=== PATIENT | female | born 1940 | race Caucasian/White ===

== ENCOUNTER → 2023-06-04 12:00 | Outpatient (REF) | payer MEDICARE, SELFPAY ==
[2023-06-04 17:35] LABS: Urine Albumin Negative (Neg - Trace); Urine Bilirubin Negative (Negative); Urine Character Clear (Clear); Urine Color Yellow; Urine Glucose Negative (Negative); Urine Ketone Negative (Negative); Urine Leukocyte 1+ (Negative); Urine Nitrite Negative (Negative); Urine Occult Blood Negative (Negative); Urine Specific Gravity 1.025 (<1.030); Urine Urobilinogen Negative (Neg - 1+)
[2023-06-04 17:48] LABS: Urine Red Blood Cell None Seen /HPF (0-2)
== END ==
LOC: OLABBH 12:00
PROVIDERS: ATTENDING PHYSICIAN Family Medicine
DX: N39.0 Urinary tract infection, site not specified (principal)
CPT/HCPCS: 81003; 81015; 87086

== ENCOUNTER 2023-11-15 20:43 | Emergency (ER) | payer MEDICARE, SELFPAY ==
[2023-11-15 20:45] VITALS: BP 145/70; BMI 27.5
--- NOTE | 2023-11-15 22:19 | ED.MUSCINJ ---
HPI-Injury
General
Chief Complaint: Fall
Source: custodial
Exam Limitations: dementia
Time Seen by Provider: 11/15/23 20:57
History of Present Illness-Injury
Is pt an associate of [facility]/[place]?: No
Initial Injury comments:
This is a 82 year old female that comes in with c/o fall. Called and spoke with Taina. States that the patient has a 1 on 1 youth care specialist. The youth care specialist told the staff that she had taken the patient into the BR to get her changes and she lost her
balance. States that she fell. State that the patient c/o wrist/hand pain. Denies any fever, chills, chest pain, SOB, nausea, vomiting, diarrhea, headache, dizziness.
Past History
Past History
ED Past Medical History: HTN, Psychiatric (Anxiety) and Other (Dementia, )
ED Past Surgical History: None
Social History
Tobacco: Non-smoker
Alcohol: None
Drug: None
Living: custodial
Review of Systems
Review of Systems
Unable to obtain full review of systems at this time due to: dementia
Other source history: custodial
All Other Systems: ROS reviewed and negative except as documented in HPI and ROS
Constitutional: Denies fever or chills
EENT: Reports no symptoms
Respiratory: Reports no symptoms
Cardiac: Reports no symptoms
ABD/GI: Reports no symptoms; Denies abdominal pain, nausea, vomiting or diarrhea
: Reports no symptoms
Musculoskeletal: Reports joint pain (Left wrist pain)
Skin: Reports no symptoms
Neurological: Reports no symptoms; Denies dizzy or headache
Psychiatric: Reports no symptoms
Musculoskeletal Injury Exam
Musculoskeletal Injury Exam
Left Wrist:
Pain with Movement?: Mild
Tender to palpation?: Mild
Soft tissue swelling?: Mild
External deformity and angulation?: Mild
Joint effusion?: None
Hematoma-local bleeding into tissue?: None
Strain- Sprain- Tear (Connective tissue injury)?: None
Crepitus with movement?: No
Joint instability?: Yes
Malalignment/deformity?: Yes (Slight)
Range of motion: Limited (Due to pain)
Distal skin color and temperature: normal-warm & good color
Capillary Refill: normal
Normal distal neurovascular exam?: Yes
Phy Exam
General Physical Exam
General Presentation: no apparent distress
General age: appears stated age
General Skin: warm and dry
General Habitus: elderly
General Mental: usual mental status
General Hydration: appears well hydrated
ENT Exam
ENT Exam: TM's normal, pharynx normal and neck supple
Eye Exam
Eye Exam: EOMI
Cardiovascular Exam
Cardiovascular Exam: regular rate/rhythm, no edema and normal peripheral pulses
Pulmonary Exam
Pulmonary Exam: lungs clear, no respiratory distress, no rales, chest non tender, no crackles, no rhonchi, no wheezing and no cough
Gastrointestinal Exam
Gastrointestinal Exam: normal bowel sounds, non tender, soft, no organomegaly, no pulsatile mass and non distended
Musculoskeletal Exam
Musculoskeletal Exam: no edema and other (Left wrist tenderness over the distal radius with swelling and contusion, Negative for cervical neck tenderness. Moving all extremties. )
Skin Exam
Skin Exam: normal color, warm/dry, no rash and no petechia
Psychiatric Exam
Psychiatric Exam: normal mood/affect
Injury Course
Orders/Labs/Results
Orders:
Orders
11/15/23 21:52
Wrist, Left 3 Views CR [CR Wrist - Left Min 3 Views] Urgent
Comment:
Reason For Exam: Fall
11/15/23 22:18
CT Head W/o Iv Contrast Urgent
Comment:
Reason For Exam: Fall
11/16/23 00:26
Splints/Slings/Crut- Treatment ONCE
Sling to: Left Arm
Location: Left
Type of Splint: Volar
MDM/Problems Addressed
Differential Diagnosis Includes:
Left wrist fracture
MDM/Problems Addressed:
This is a 83 year old female that comes in by ambulance from the custodial. Called and spoke with Taina and she states that the patient has a personal youth care specialist. States that she was taken into the bathroom to clean her up and patient lost her
balance. States that they were unsure if she hit her head.
will get CT dna X-ray of the left wrist.
CT of head was normal. There is a distal radial head fracture. Will place in splint and sling and have patient follow up with the medical staff specialist. Patient to use Tylenol for pain. Return with any concerns.
Chronic conditions affecting care:
Dementia
Acute Exacerbation and/or Progression of Chronic Illness:
NA
*Radiology
Radiology exam reviewed: preliminary read by ED provider (Left distal radial head fracture. ) and radiology read reviewed (CT head- No acute intracranial process. No intracranial bleed. No calvarial fracture. Unchanged moderate parenchymal volume
loss)
*Pulse Oximetry
Patient hypoxic: no
*EKG
Interpreted by ED Provider?: NA
Rate: EKG- N/A
*Window Framer Interpretation
Rate: Window Framer- N/A
*Critical Care Note
Total Time (30-74mins, 75-104mins- exclusive of procedures): Not Applicable
ED Attending Note
-
Portions of this chart may have been created with voice recognition software.� Occasional wrong word or��sound alike� substitutions may have occurred due to the inherent limitations of voice recognition software.
Discharge Plan
Departure
Patient Disposition: Detention/SNF
Date of Disposition: 11/16/23
Time of Disposition: 00:52
Patient with high blood pressure during this ER visit?: Yes
Condition: Good
Covid-19: Not Applicable
Discharge Problem:
Fracture of left wrist
Instructions: Preventing falls in adults, How to Use a Shoulder Sling ED, BLOOD PRESSURE, RICE Therapy, Wrist Fracture
Prescriptions:
No Action
polyethylene glycol 3350 17 gram Powder In Packet
17 g PO DAILYPRN PRN (Reason: if no bm in 2 days)
sertraline 50 mg Tablet
50 mg PO DAILY
quetiapine 300 mg tablet
300 mg PO HS
lisinopril 20 mg tablet
20 mg PO DAILY
aspirin 81 mg Tablet,Delayed Release (Dr/Ec)
81 mg PO DAILY
oxcarbazepine 150 mg tablet
150 mg PO DAILY
oxcarbazepine 150 mg tablet
225 mg PO HS
loperamide 2 mg Capsule
2 mg PO Q4HPRN PRN (Reason: loose stool)
gabapentin 400 mg capsule
400 mg PO BID
quetiapine 100 mg tablet
100 mg PO DAILY
triamcinolone acetonide 0.1 % ointment
1 applic TOPICAL BID@0700,2000
nitrofurantoin monohyd/m-cryst 100 mg capsule
100 mg PO DAILY
quetiapine 50 mg tablet
50 mg PO BIDPRN PRN (Reason: anxiety)
Referrals:
Davis Ayoub MD [Active] - Follow up in 2-3 days
Eliazar Parks MD [Family Provider] -
Activity Restrictions/Additional Instructions:
As discussed, patient has a fracture of the left radius. A splint has been applied. Please keep this on until she see's the provider relations specialist. Please keep in the sling when up moving around and remove the sling to sleep and rest on a pillow. Ice
to the wrist as much as possible. Tylenol as needed for pain. CT of the head was normal. Follow up with the family doctor as needed. IF YOU HAVE ANY OTHER CONCERNS PLEASE RETURN TO THE EMERGENCY ROOM.
Interventions
Interventions:
*Risk Screen - Suicide Last Done: 11/15/23 20:45
*General Assessment Last Done: 11/15/23 20:45
*Neglect/Abuse Screening Last Done: 11/15/23 20:45
ED-Musculoskeletal Assessment Last Done: 11/15/23 20:53
ED- Neurological Assessment Last Done: 11/15/23 20:53
ED-Skin Assessment Last Done: 11/15/23 20:53
Discharge Date and Time
Print Language: PALAUAN
[2023-11-16 01:44] VITALS: BP 152/68
[2023-11-16 04:14] VITALS: BP 150/66
== END 2023-11-16 04:17 ==
LOC: EMR 20:43
PROVIDERS: EMERGENCY PHYSICIAN Emergency Medicine; FAMILY PHYSICIAN Family Medicine
DX: S52.572A Other intraarticular fracture of lower end of left radius, initial encounter for closed fracture (principal); W19.XXXA Unspecified fall, initial encounter; F03.94 Unspecified dementia, unspecified severity, with anxiety; I10 Essential (primary) hypertension
CPT/HCPCS: 99284; 29125; 70450; 73110

== ENCOUNTER 2024-05-21 03:07 | Emergency (ER) | payer MEDICARE, SELFPAY ==
[2024-05-21] VITALS (11 sets, daily range): BP systolic 101–165; BP diastolic 47–86; BMI 20.5
--- NOTE | 2024-05-21 04:12 | ED.GENMED ---
History of Present Illness
General
Chief Complaint: Fall
Source: ambulance crew and custodial
Exam Limitations: altered mental status and dementia
Time Seen by Provider: 05/21/24 04:06
Nursing documentation reviewed up to this point in time: agreed with
History of Present Illness
History of Present Illness:
This is an 83-year-old woman with history of dementia with behavioral disturbances, resident of a memory care custodial. She suffered an unwitnessed fall, being found by custodial staff sitting on the floor in the bathroom with a bedpan on
her head covered in feces.
According to the custodial staff patient seems more confused than her baseline confusion.
No report of blood thinners save for low-dose aspirin.
History and exam markedly limited due to dementia.
Upon arrival to the ED patient found to be hypothermic with rectal temperature of 94.2 �F.
Past History
Past History
ED Past Medical History: HTN, Psychiatric (Anxiety) and Other (Dementia, )
ED Past Surgical History: None
Social History
Tobacco: Non-smoker
Alcohol: None
Drug: None
Living: custodial
Family History
Family History: Unable to obtain
Phy Exam
Physical Exam
Physical Exam:
GENERAL: 83-year-old woman appears her stated age, appears somewhat chronically debilitated. Drowsy, opens her eyes to verbal/tactile stimuli and looks to the examiner but is nonverbal and is not following commands.
EYE: The head is normocephalic, atraumatic. Pupils equal and reactive. anicteric
NECK: Supple, no appreciable tenderness, markedly limited range of motion, no meningismus, no significant adenopathy.
ENT: posterior pharynx is clear, oral mucosa is moist. TM clear b/l, nares patent.
CARDIAC: Regular rate and rhythm. no murmur. No palpable chest wall tenderness.
LUNGS: Clear breath sounds bilaterally, no acute respiratory distress, no wheezes/rales/rhonchi
ABDOMEN: Soft, nondistended, without focal tenderness, no r/g, normoactive BS.
BACK: No appreciable midline bony tenderness. No evidence of contusions nor abrasions.
NEUROLOGICAL: Sleeps when undisturbed, awakens to verbal/tactile stimuli. Looks to the examiner but is nonverbal, does not follow commands. Moving all 4 extremities. No focal neuro deficits.
SKIN: Mildly cool and dry, normal color, skin intact. No rash. No contusions nor abrasions.
MUSCULOSKELETAL: No C/C/E. peripheral pulses are full and equal b/l. No palpable tenderness.
PSYCH: Nonverbal.
Course
Orders/Labs/Results
Orders:
Orders
05/21/24 03:18
Electrocardiogram (*1) Urgent
Reason for Study: Other
Other Reason for Exam: Possible Sepsis
Cardiac Monitoring- Treatment ONCE
IV Insert/Care/Rem.- Treatment PRN
Straight cath- Treatment ONCE
05/21/24 03:19
EKG- Treatment ONCE
05/21/24 03:20
CT Cervical Spine W/o Iv Contr Urgent
Comment:
Reason For Exam: altered mental status
CT Head W/o Iv Contrast Urgent
Comment: wrong order placed by rn
Reason For Exam: altered mental status
05/21/24 03:59
Complete Blood Count/With Diff Urgent
Comprehensive Metabolic Panel Urgent
Lactic Acid Q4H
Comment: ON ICE, CANCEL 2ND ORDER IF FIRST LACTIC ACID LEVEL <2
Blood Culture Q20M
[place] Source: Blood/Venous
Specimen Description:
Comment: Urgent from separate sites. If patient screens positive for possible sepsis
05/21/24 04:34
Urinalysis Reflex To Culture Urgent
Date Specimen was Collected: 05/21/24
Time Specimen was Collected: 03:19
Urine Microscopic Reflex Cult Urgent
Blood Culture Q20M
[place] Source: Blood/Venous
Specimen Description:
Comment: Urgent from separate sites. If patient screens positive for possible sepsis
Urine Culture Urgent
[place] Source: U
Specimen Description:
Date Specimen was Collected: 05/21/24
Time Specimen was Collected: 03:19
Abnormal Lab Results
05/21/24 05/21/24
03:59 04:34
RBC 4.16 L 10^6/uL
(4.20-5.40)
MPV 11.7 H fL
(7.4-10.4)
Absolute Neuts (auto) 7.4 H 10^3/uL
(1.4-6.5)
Absolute Lymphs (auto) 0.5 L 10^3/uL
(1.2-3.4)
Neutrophils % 86.0 H %
(42.2-75.2)
Lymphocytes % 6.2 L %
(20.5-51.1)
BUN 41 H mg/dl
(7-17)
Glucose 184 H mg/dl
(70-99)
Urine Ketones 1+ A
(Negative)
Leukocyte Esterase Rfl 1+ A
(Negative)
Urine Bacteria (Reflex) Moderate A
(Negative)
Urine Albumin (Reflex) 2+ A
(Neg - Trace)
05/21/24 03:59
05/21/24 03:59
Vital Signs
Initial and Last Documented VS:
Initial Vital Signs
Temp Pulse Resp BP Pulse Ox
94.2 F L 81 12 110/47 94
05/21/24 03:10 05/21/24 03:10 05/21/24 03:10 05/21/24 03:10 05/21/24 03:10
Last Documented Vital Signs
Temp Pulse Resp BP Pulse Ox
97.3 F 71 14 138/76 96
05/21/24 06:08 05/21/24 07:06 05/21/24 07:06 05/21/24 07:06 05/21/24 07:06
MDM/Problems Addressed
Differential Diagnosis Includes:
Concern for occult head injury, cervical spine injury, will check CT.
Found to be hypothermic, concern for occult sepsis.
Will check labs, urinalysis.
Will place on business records manager, concern for potential arrhythmia as cause for fall.
Chronic conditions affecting care: HTN and Psychiatric illness (Dementia)
*Radiology
Radiology exam reviewed: radiology read reviewed (CT of the head and C-spine show no acute traumatic findings. Note of multinodular enlarged thyroid gland.)
*EKG
Interpreted by ED Provider?: Yes
Comparison EKG: changes noted (Unchanged from previous 2022 save for QT has lengthened)
Rate: normal
Rhythm: sinus
[place]: left axis deviation
Interval: long QT
QRS Pattern: normal QRS
Ischemia: no ischemia
*Line Manager Interpretation
Rate: normal
Interpretation: normal
Rhythm: sinus
*Critical Care Note
Total Time (30-74mins, 75-104mins- exclusive of procedures): Not Applicable
Update Note
Update Note:
06:55
Temperature has normalized with brief course of Cornelius hugger.
CT of the head is unremarkable. C-spine CAT scan is unremarkable.
Labs are unremarkable.
Urinalysis shows moderate bacteria but only 0-2 WBCs not consistent with UTI.
Patient appears to be at her baseline mental state.
No evidence of acute traumatic findings, no evidence of acute infectious process.
Will discharge back to custodial for continued care.
ED Attending Note
-
Portions of this chart may have been created with voice recognition software.� Occasional wrong word or��sound alike� substitutions may have occurred due to the inherent limitations of voice recognition software.
Discharge Plan
Departure
Patient Disposition: Half-Way/SNF
Date of Disposition: 05/21/24
Time of Disposition: 06:58
Patient with high blood pressure during this ER visit?: No
Condition: Good
Discharge Problem:
unwitnessed fall at custodial
Instructions: Preventing falls in adults
Prescriptions:
No Action
polyethylene glycol 3350 17 gram Powder In Packet
17 g PO DAILYPRN PRN (Reason: if no bm in 2 days)
sertraline 50 mg Tablet
50 mg PO DAILY
quetiapine 300 mg tablet
300 mg PO HS
lisinopril 20 mg tablet
20 mg PO DAILY
aspirin 81 mg Tablet,Delayed Release (Dr/Ec)
81 mg PO DAILY
oxcarbazepine 150 mg tablet
150 mg PO DAILY
oxcarbazepine 150 mg tablet
225 mg PO HS
loperamide 2 mg Capsule
2 mg PO Q4HPRN PRN (Reason: loose stool)
gabapentin 400 mg capsule
400 mg PO BID
quetiapine 100 mg tablet
100 mg PO DAILY
triamcinolone acetonide 0.1 % ointment
1 applic TOPICAL BID@0700,1999
nitrofurantoin monohyd/m-cryst 100 mg capsule
100 mg PO DAILY
quetiapine 50 mg tablet
50 mg PO BIDPRN PRN (Reason: anxiety)
Referrals:
UNKNOWN - PT DOES,NOT KNOW [Family Provider] -
Interventions
Interventions:
*Risk Screen - Suicide Last Done: 05/21/24 03:10
*General Assessment Last Done: 05/21/24 03:10
*Neglect/Abuse Screening Last Done: 05/21/24 03:10
*ED- Fall Risk Assessment Last Done: 05/21/24 07:06
*ED COVID-19 Vaccine History Last Done: 05/21/24 03:10
ED-Musculoskeletal Assessment Last Done: 05/21/24 04:15
ED- Neurological Assessment Last Done: 05/21/24 04:15
ED-Skin Assessment Last Done: 05/21/24 04:15
ED Swallowing Screen Last Done: 05/21/24 04:15
Discharge Date and Time
Print Language: YI
[2024-05-21 04:16] LABS: % Basophils 0.4 % (0-2); % Eosinophils 0.7 % (0-6); % Immature Granulocytes 0.5 % (0-0.5); % Lymphocytes 6.2 % (20.5-51.1); % Monocytes 6.2 % (1.7-9.3); Absolute Eosinophils 0.1 10^3/uL (0-0.7); Absolute Lymphocytes 0.5 10^3/uL (1.2-3.4); Absolute Monocytes 0.5 10^3/uL (0.1-0.6); Absolute Neutrophils 7.4 10^3/uL (1.4-6.5); Hematocrit 39.1 % (37.0-47.0); Hemoglobin 12.9 g/dL (12.0-16.0); Mean Platelet Volume 11.7 fL (7.4-10.4); Nucleated Red Blood Cells % 0 %; Platelet Count 161 10^3/uL (130-400); Red Blood Cell Count 4.16 10^6/uL (4.20-5.40); Red Cell Dist. Width 13.2 % (11.5-14.5); White Blood Cell Count 8.6 10^3/uL (4.8-10.8)
[2024-05-21 04:33] LABS: ALT (SGPT) 21 U/L (0-35); AST (SGOT) 23 U/L (14-36); Albumin 4.2 g/dl (3.5-5.0); Alkaline Phosphatase 86 U/L (38-126); Blood Urea Nitrogen 41 mg/dl (7-17); Calcium 10.2 mg/dl (8.4-10.2); Carbon Dioxide 28 mmol/L (22-30); Chloride 104 mmol/L (98-107); Estimated Creatinine Clearance 42 ml/min; Glucose 184 mg/dl (70-99); Potassium 3.7 mmol/L (3.5-5.1); Sodium 141 mmol/L (135-145); Total Bilirubin 0.8 mg/dl (0.2-1.3); Total Protein 6.4 g/dl (6.3-8.2); eGFR 56.25
[2024-05-21 05:08] LABS: Urine Albumin 2+ (Neg - Trace); Urine Bilirubin Negative (Negative); Urine Character Clear (Clear); Urine Color Amber; Urine Glucose Negative (Negative); Urine Ketone 1+ (Negative); Urine Leukocyte 1+ (Negative); Urine Nitrite Negative (Negative); Urine Occult Blood Negative (Negative); Urine Urobilinogen 1+ (Neg - 1+)
[2024-05-21 05:57] LABS: Urine Amorphous Seen; Urine Calcium Oxalate Crystals Seen; Urine Mucus Few; Urine Red Blood Cell 0-2 /HPF (0-2); Urine White Cell 0-2 /HPF (0-5)
[2024-05-21 05:58] LABS: Urine Bacteria Moderate (Negative)
--- NOTE | 2024-05-21 07:27 | EDRN ---
this RN called [facility] at [phone] and spoke to the receiving nurse and gave verbal report
--- NOTE | 2024-05-21 11:41 | EDRN ---
verbal report given to Acute Care Transport
== END 2024-05-21 11:43 ==
LOC: EMR 03:07
PROVIDERS: EMERGENCY PHYSICIAN Emergency Medicine
DX: T68.XXXA Hypothermia, initial encounter (principal); W18.39XA Other fall on same level, initial encounter; Y92.129 Unspecified place in nursing home as the place of occurrence of the external cause; F03.90 Unspecified dementia, unspecified severity, without behavioral disturbance, psychotic disturbance, mood disturbance, and anxiety; I10 Essential (primary) hypertension
CPT/HCPCS: 99284; 70450; 72125; 80053; 81003; 81015; 83605; 85025; 87040; 87086; 93005

== ENCOUNTER → 2024-11-06 11:34 | Outpatient (REF) | payer MEDICARE, SELFPAY ==
[2024-11-06 14:22] LABS: ALT (SGPT) 20 U/L (0-35); AST (SGOT) 18 U/L (14-36); Albumin 3.7 g/dl (3.5-5.0); Alkaline Phosphatase 65 U/L (38-126); Blood Urea Nitrogen 31 mg/dl (7-17); Calcium 9.8 mg/dl (8.4-10.2); Carbon Dioxide 27 mmol/L (22-30); Chloride 110 mmol/L (98-107); Glucose 85 mg/dl (70-99); Potassium 4.1 mmol/L (3.5-5.1); Sodium 140 mmol/L (135-145); Total Protein 6.0 g/dl (6.3-8.2); eGFR > 60.00
[2024-11-06 14:34] LABS: Prealbumin (Transthyretin) 17.8 mg/dl (17.6-36.0)
== END ==
LOC: OLABBH 11:34
PROVIDERS: ATTENDING PHYSICIAN Family Medicine; FAMILY PHYSICIAN Family Medicine
DX: R77.0 Abnormality of albumin (principal)
CPT/HCPCS: 36415; 80053; 84134